=== PATIENT | female | born 1960 | race Caucasian/White ===

== ENCOUNTER 2021-12-20 14:30 | Outpatient (RCR) | payer OTHER, SELFPAY ==
[2021-11-16 11:07] VITALS: BMI 33.6
[2021-11-16 11:17] VITALS: BMI 33.6
== END 2022-02-07 07:20 | disposition home or self-care (01) ==
LOC: ANHDMC 14:30
PROVIDERS: PCP Nurse Practitioner Family; Visit Provider Nurse Practitioner Family
DX: E11.9 Type 2 diabetes mellitus without complications (principal); Z71.3 Dietary counseling and surveillance; Z71.89 Other specified counseling
CPT/HCPCS: 97802; 99199; G0108; G0109

== ENCOUNTER 2022-10-06 17:52 | Emergency (ER) | payer OTHER, SELFPAY ==
[2022-10-06 17:52] VITALS: BP 120/69; PULSE 99; RESP 16; TEMP 36.4; O2SAT 100
[2022-10-06 19:16] VITALS: BP 105/73; PULSE 90; RESP 16; O2SAT 99
[2022-10-06 19:17] VITALS: BP 106/55; PULSE 85
[2022-10-06 19:18] VITALS: BP 116/67; PULSE 93
--- NOTE | 2022-10-06 19:51 | ED.GENADULT ---
HPI - General Adult General Chief complaint: Dizziness Stated complaint: dizziness Time Seen by Provider: 10/06/22 19:10 History of Present Illness HPI narrative: this is a 62-year-old female presenting ED with a chief complaint of dizziness. At 1:30 p.m. she took a 10 mg THC edible. She took the edible because while she was at the store the person working the manager front office said she looked tired and could use of boost. He then sold her a THC edible. Shortly after she started experience a sensation of dizziness, headache, strange sensations throughout her body and racing thoughts. She also had some nausea but no vomiting. She has never used THC in the past. She denies dysphagia, dysarthria, dystaxia or numbness tingling or weakness to any extremity. Related Data Allergies Allergy/AdvReac Type Severity Reaction Status Date / Time adhesive Allergy Mild Rash Verified 10/06/22 19:15 [facility] Past Medical History Medical History (Updated 10/06/22 @ 19:58 by Vin Valdes MD) CKD (chronic kidney disease) Diabetes High cholesterol Social History Social History (Updated 10/06/22 @ 19:54 by Vin Valdes MD) Social History: patient denies drugs alcohol or tobacco Spiritual care concerns: No Exam Narrative: APPEARANCE: No apparent distress. Head: atraumatic. EYES: EOMI, NOSE: Atraumatic NECK: Trachea midline RESPIRATORY: No increased rate of breathing CARDIOVASCULAR: RRR, ABDOMINAL: Non-distended MUSCULOSKELETAl: No obvious deformities NEURO: Alert. Cranial nerves 2-12 grossly intact. Sensation light touch, motor function cerebellar function intact for 4 extremities. Gait exam was normal. No nystagmus at rest. Head impulse indeterminate, test of skew negative SKIN:: Warm, dry. Normal color PSYCHIATRIC: Normal affect Course Vital Signs Vital signs: Vital Signs Temperature 97.5 F L 10/06/22 17:52 Pulse Rate 99 10/06/22 17:52 Respiratory Rate 16 10/06/22 17:52 Blood Pressure 120/69 10/06/22 17:52 Pulse Oximetry 100 10/06/22 17:52 Temperature 97.5 F L 10/06/22 17:52 Pulse Rate 93 10/06/22 19:18 Respiratory Rate 16 10/06/22 19:16 Blood Pressure 116/67 01/07/23 19:18 Pulse Oximetry 99 10/06/22 19:16 Medical Decision Making MDM Narrative Medical decision making narrative: DDX includes but is not limited to: THC toxicity, peripheral vertigo, posterior stroke Co-morbidities complicating care: diabetes, CKD, high cholesterol External Chart Review: none Hx from independent Sources: Discussion of Management: care discussed with and patient Independent interpretation of studies: None Dx tests considered but not ordered: CTA and MRI were considered however the patient has a normal neurologic exam and no localizing findings I believe a stroke is likely. Shared decision making: Performed with patient her . Patient would like to be discharged home. She will be given Valium. Procedures: None Interventions: None This 62-year-old female presenting ED with a chief complaint of dizziness. The patient took a large dose of THC and is a night he. All of her symptoms are likely due to the THC. She has a normal neurologic exam and will posterior stroke was considered I think is highly unlikely. Patient will be given Valium to help her relax. She will be discharged home with instructions to sleep it off. If she still has symptoms in the morning she can return emergency department for re-evaluation. Vital Signs Vital Signs: Vital Signs Temperature 97.5 F L 10/06/22 17:52 Pulse Rate 99 10/06/22 17:52 Respiratory Rate 16 10/06/22 17:52 Blood Pressure 120/69 10/06/22 17:52 Pulse Oximetry 100 10/06/22 17:52 Temperature 97.5 F L 10/06/22 17:52 Pulse Rate 93 10/06/22 19:18 Respiratory Rate 16 10/06/22 19:16 Blood Pressure 116/67 10/06/22 19:18 Pulse Oximetry 99 10/06/22 19:16 Discharge Plan Discharge Clini
[2022-10-06] MEDS: diazePAM (*CRX) 5 MG TABLET PO (20:06)
[2022-10-06 20:07] VITALS: BP 109/67; PULSE 84; RESP 17; O2SAT 98
== END 2022-10-06 20:18 | disposition home or self-care (01) ==
PROVIDERS: Emergency Provider Emergency Medicine; PCP Nurse Practitioner Family
DX: T40.711A Poisoning by cannabis, accidental (unintentional), initial encounter (principal); R42 Dizziness and giddiness; E11.22 Type 2 diabetes mellitus with diabetic chronic kidney disease; N18.9 Chronic kidney disease, unspecified; E78.00 Pure hypercholesterolemia, unspecified
CPT/HCPCS: 99283; A9270

== ENCOUNTER 2023-05-09 00:30 | Day surgery (SDC) | payer OTHER, SELFPAY ==
[2023-04-29 13:01] VITALS: BMI 32.3
[2023-05-09 07:10] VITALS: BP 108/52; PULSE 75; RESP 16; TEMP 36; O2SAT 97; BMI 34.4
[2023-05-09] MEDS: LACTATED RINGERS 1,000 ML 150 ML IV CONT (07:19)
[2023-05-09 07:22] LABS: Glucose Point of Care 125 mg/dl (65-105)
--- NOTE | 2023-05-09 08:04 | P.PNAN_ITS ---
Anes - Initial Pre Proc Eval Procedure: Operation Date: 05/09/23 08:30 Proposed Procedures p Colonoscopy - Rene Berg MD Date/Time: 05/09/23 08:04 Surgeon: Rene Berg MD Pre Op Diagnosis: hx colon polyps Patient Data Age: 63 Gender: F Height: 1.68 m Weight: 97 kg Last Vital Signs Temp 96.8 F L 05/09/23 07:10 Pulse 75 05/09/23 07:10 Resp 16 05/09/23 07:10 BP 108/52 L 05/09/23 07:10 Pulse Ox 97 05/09/23 07:10 O2 Del Method Room Air 05/09/23 07:10 Allergies Allergy/AdvReac Type Severity Reaction Status Date / Time adhesive Allergy Mild Rash Verified 05/09/23 07:09 Home Medications Medication Instructions Recorded Confirmed Type bupropion HCl 300 mg 24 hr tablet, 300 mg PO DAILY 04/29/23 05/09/23 History extended release ergocalciferol (vitamin D2) 1,250 1,250 mcg PO WEEKLY 04/29/23 05/09/23 History mcg (50,000 unit) capsule linaclotide 290 mcg capsule 290 mcg PO DAILY 04/29/23 05/09/23 History (Linzess) semaglutide 2 mg/dose (8 mg/3 mL) 2 mg subcut WEEKLY 04/29/23 05/09/23 History subcutaneous pen injector (Ozempic) simvastatin 40 mg tablet 40 mg PO DAILY 04/29/23 05/09/23 History Laboratory Tests 05/09/23 07:14 POC Capillary Glucose 125 H mg/dl (65-105) Patient hx anesthesia problems: none Family hx anesthesia problems: none Results Review: All pre-operative results and documents have been reviewed as part of the pre- operative evaluation. [facility] Past Medical History Medical History (Updated 10/07/22 @ 00:08 by Liz Silver) CKD (chronic kidney disease) Diabetes High cholesterol Social History Social History (Updated 10/06/22 @ 19:54 by Vin Valdes MD) Social History: patient denies drugs alcohol or tobacco Smoking status: Never smoker Living arrangements: with family Spiritual care concerns: No Anes - Eval Final PreProcedure Day of Procedure 08/10/23 08:04 Patient weight: normal Heart: regular rate and rhythm Lungs: clear to auscultation Airway: Mallampati scale class II Neurological: alert and oriented Last oral intake: >/= 8 hours ASA classification: III Emergent: no Anesthetic plan: proceed Anesthesia type and monitoring: general GIVS and standard monitoring Results Review: All pre-operative results and documents have been reviewed as part of the pre- operative evaluation. Informed Consent: The patient's anesthetic plan and its attendant risks and benefits were discussed with the patient/family/POA. Questions were solicited and answers provided to the satisfaction of the patient/family/POA.
--- NOTE | 2023-05-09 08:29 | PM.HPGS ---
History of Present Illness History of Present Illness Consent: Risks, benefits, and alternatives have been discussed and questions answered. Patient agrees to proceed with procedure. Chief complaint: hx colon polyps Narrative: Marjorie Griffith is a 63 year old female with polyps in the past, last colonscopy 3 years ago did not have any Review of Systems Constitutional: Constitutional: Denies headache(s) and Denies weakness Eyes: Eyes: Denies blurry vision ENT: Reports Normal hearing present, Denies headache(s) and Denies neck pain Cardiovascular: Cardiovascular: Denies chest pain and Denies dyspnea Respiratory: Respiratory: Denies dyspnea Gastrointestinal: Gastrointestinal: Reports no additional gastrointestinal complaints Genitourinary: Genitourinary: Denies dysuria Musculoskeletal: Musculoskeletal: Denies neck pain Integumentary/Breasts: Skin/Breast: Denies dry skin Neurologic: Reports Normal hearing present, Denies headache(s) and Denies weakness Psychiatric: Psychiatric: Denies anxiety Endocrine: Endocrine: Denies change in body appearance Hematologic/Lymphatic: Hematologic/Lymphatic: Denies easy bleeding Allergic/Immunologic: Allergic/Immunologic: Denies urticaria [facility] Past Medical History Medical History (Updated 05/09/23 @ 08:30 by Rene Berg MD) CKD (chronic kidney disease) Colon polyp Diabetes High cholesterol Social History Social History (Updated 10/06/22 @ 19:54 by Vin Valdes MD) Social History: patient denies drugs alcohol or tobacco Smoking status: Never smoker Living arrangements: with family Spiritual care concerns: No Meds Home Medications and Allergies Home Medications Medication Instructions Recorded Confirmed Type bupropion HCl 300 mg 24 hr tablet, 300 mg PO DAILY 04/29/23 05/09/23 History extended release ergocalciferol (vitamin D2) 1,250 1,250 mcg PO WEEKLY 04/29/23 05/09/23 History mcg (50,000 unit) capsule linaclotide 290 mcg capsule 290 mcg PO DAILY 04/29/23 05/09/23 History (Linzess) semaglutide 2 mg/dose (8 mg/3 mL) 2 mg subcut WEEKLY 04/29/23 05/09/23 History subcutaneous pen injector (Ozempic) simvastatin 40 mg tablet 40 mg PO DAILY 04/29/23 05/09/23 History Allergies Allergy/AdvReac Type Severity Reaction Status Date / Time adhesive Allergy Mild Rash Verified 05/09/23 07:09 Vital Signs Vital Signs - 24 hr 05/09/23 07:10 Temperature 96.8 F L Pulse Rate 75 Respiratory Rate 16 Blood Pressure 108/52 L Pulse Oximetry 97 Oxygen Delivery Room Air Exam Const: General: comfortable and no acute distress HENMT: Face/Nose/Sinus: Normal nares present Eyes: General: appearance normal, both eyes and all related structures Neck: Neck: no JVD Resp: Auscultation: clear to auscultation bilaterally Cardio: Rate: regular rate Rhythm: regular rhythm GI: Inspection: non-distended GI Palp: Yes Soft to palpation Skin: General skin exam: normal color Neuro: General: gait normal Speech: normal speech Extrem: General: normal to inspection Psych: Mental Status: mental status grossly normal Assessment and Plan Assessment and plan (1) Colon polyp: Code(s): K63.5 - Polyp of colon Status: Acute Assessment and Plan: colonoscopy
[2023-05-09 08:49] VITALS: BP 111/79; PULSE 80; RESP 17; O2SAT 96
[2023-05-09 08:59] VITALS: BP 108/79; PULSE 73; RESP 22; O2SAT 96
[2023-05-09 09:09] VITALS: BP 119/70; PULSE 70; RESP 23; O2SAT 96
== END 2023-05-09 09:15 | disposition home or self-care (01) ==
PROVIDERS: PCP Nurse Practitioner Family; Visit Provider Internal Medicine Gastroenterology
PROC: 0DJD8ZZ Inspection of Lower Intestinal Tract, Via Natural or Artificial Opening Endoscopic (ICD-10-PCS; CPT 45378; principal; 2023-05-09 08:30)
DX: Z12.11 Encounter for screening for malignant neoplasm of colon (principal); Z86.010 Personal history of colon polyps; E11.22 Type 2 diabetes mellitus with diabetic chronic kidney disease; N18.9 Chronic kidney disease, unspecified; E78.00 Pure hypercholesterolemia, unspecified
CPT/HCPCS: 45378; 82948; J2704; J7120

== ENCOUNTER 2023-06-22 11:03 | Emergency (ER) | payer OTHER, SELFPAY ==
[2023-06-22 11:13] VITALS: BP 114/70; PULSE 84; RESP 16; TEMP 36.2; O2SAT 100
--- NOTE | 2023-06-22 11:40 | ED.URI ---
HPI - URI/Sore Throat General Chief Complaint: Upper Respiratory Infection Stated Complaint: cough Time Seen by Provider: 06/22/23 11:30 Source: patient, RN notes reviewed and old records reviewed Mode of arrival: ambulatory Limitations: no limitations History of Present Illness HPI Narrative: 63-year-old female who presents to [facility] complaints of cough which has been persistent for the past 4-6 weeks and is worse at night. Patient reports that she has had 2 prescriptions of Tessalon Perles and has taken a bottle of Mucinex cough medication without resolution of cough. Patient has some sinus congestion denies facial pressure, reports cough is productive at night.Patient is able to speak in full sentences, respirations are nonlabored SAO2 100% on room air. MD elicited complaint: cough, rhinorrhea and nasal congestion Onset (ago): week(s) (4-6 weeks) Description of mucous: clear Able to tolerate fluids by mouth: Yes Treatments prior to arrival: cold medicine and other (cough medication) Related Data Home Medications Medication Instructions Recorded Confirmed bupropion HCl 300 mg 24 hr tablet, 300 mg PO DAILY 04/29/23 05/09/23 extended release ergocalciferol (vitamin D2) 1,250 1,250 mcg PO WEEKLY 04/29/23 05/09/23 mcg (50,000 unit) capsule linaclotide 290 mcg capsule 290 mcg PO DAILY 04/29/23 05/09/23 (Linzess) simvastatin 40 mg tablet 40 mg PO DAILY 04/29/23 05/09/23 Fish Oil 06/22/23 tirzepatide 10 mg/0.5 mL mg subcut 06/22/23 subcutaneous pen injector (Louis) Allergies Allergy/AdvReac Type Severity Reaction Status Date / Time adhesive Allergy Mild Rash Verified 06/22/23 11:04 Review of Systems Review of Systems: CONSTITUTIONAL: Denies malaise, chills, sweats, or fever. EYES: Denies visual changes, redness, or discharge. ENT: Reports rhinorrhea, congestion, sinus pain, no otalgia and no sore throat. CARDIOVASCULAR: Denies chest pain, palpitations, or edema. RESPIRATORY: Reports cough.? Denies dyspnea. GASTROINTESTINAL: Denies abdominal pain, nausea, vomiting, diarrhea SKIN: Denies rash or itching. MUSCULOSKELETAL: Denies myalgia. NEUROLOGIC: Denies headache. All systems reviewed & are unremarkable except as noted in HPI and below PMFSH Past Medical History Medical History (Updated 06/23/23 @ 16:38 by Carlita Chery NP) CKD (chronic kidney disease) Colon polyp DDD (degenerative disc disease) Diabetes Fusion of spine, cervical region High cholesterol History of IBS Surgical History Surgical History (Updated 06/23/23 @ 16:38 by Carlita Chery NP) H/O: hysterectomy Hx of cholecystectomy Previous section x2 Social History Social History Social History: patient denies drugs alcohol or tobacco Smoking status: Never smoker Living arrangements: with family Spiritual care concerns: No Comments At time of signature, agree with nursing past medical, surgical, social and family history. There is no relevant family history pertinent to the presenting complaint Exam Narrative: GENERAL: Well-appearing, well-nourished, and in no acute distress. HEAD: Normocephalic EYES: PERRLA, conjunctivae clear ENT: Nares clear, turbinates edematous and erythematous, clear discharge. Mucous membranes moist. TM pearly goodman with dull light reflex bilaterally; no tragal tenderness. Oropharynx erythematous without lesions. Tonsils not enlarged and without exudate, no drooling, no hoarseness, no trismus, uvula midline.post nasal drainage noted NECK: Supple. No lymphadenopathy CHEST: Clear to auscultation, breath sounds equal. No wheezing, rhonchi, rales, or stridor. No respiratory distress, speaks in full sentences. frequent cough , SAO2 100% on room air HEART: Regular rate and rhythm. No murmur heard. SKIN: Warm, dry, no rash. NEURO: Alert and oriented x3. PSYCH: Normal mood and affect
== END 2023-06-22 12:08 | disposition home or self-care (01) ==
PROVIDERS: Emergency Provider Registered Nurse; PCP Nurse Practitioner Family
DX: J06.9 Acute upper respiratory infection, unspecified (principal); E11.22 Type 2 diabetes mellitus with diabetic chronic kidney disease; N18.9 Chronic kidney disease, unspecified; E78.00 Pure hypercholesterolemia, unspecified
CPT/HCPCS: 99213; G0463

== ENCOUNTER 2024-09-09 08:44 | Outpatient (RCR) | payer OTHER, SELFPAY ==
--- NOTE | 2024-09-09 09:50 | PTOPEVAL1 ---
Assessment and note entered by Eliot Walker, PT, DPT Evaluation Information Assessment Status Evaluation Subjective Information Pt states about a month ago she had a back ache, a couple of weeks ago she went to the doctor and got a muscle relaxer and a steroid and it made the pain worse. She states the pain in now in her low back, shoots down her both legs R>L, and at times will go up to her neck. 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 Reported Pain Level Pain Score 6,4: Self Report Assessment PT Clinical Summary Pt presents to therapy today for her initial evaluation with a diagnosis of a lumbar strain. Today she demonstrates asymmetric pelvic alignment in supine that is corrected with muscle energy techniques. She ambulates with a shortened stride length with a lack of heel strike marissa. She demonstrates an increased anterior pelvic tilt and decreased core strength. She was issued an HEP this date and plans to work on this IND d/t her high copay. Will leave her chart open in the event that she has questions and needs a follow up visit. Plan of Care Interventions Electrical Stimulation,Gait Training,Hot Pack/Cold Pack,Manual Therapy,Paraffin Bath,Patient/ Caregiver Education,Therapeutic Activities, Therapeutic Exercise PT Services Indicated Yes Treatment Frequency and 1x/wk for 6 visits Duration These treatments will address the objective and functional deficits as defined above. The patient will be advanced safely and appropriately in order for the patient to progress towards his/her prior level of function. Additional exercises will be introduced and as well as a comprehensive home exercise program upon discharge, if needed, ?to ensure carryover of functional gains achieved in the clinic. This treatment plan has been reviewed and agreement upon by the patient.
--- NOTE | 2024-11-25 10:09 | PTOPDC ---
Assessment and note entered by Eliot Walker, PT, DPT Evaluation Information Assessment Status Discharge - Pt Not Present Subjective Information Pt was evaluated on 09/09/24, at that time she elected to work on her HEP IND and would follow up if she had any questions. Attempted to follow up with pt but have not heard back. Will discharged at this time d/t not hearing from pt. Assessment PT Clinical Summary Evaluated on 09/09/24 and did not complete any follow up appointments.
== END 2024-11-25 11:58 | disposition home or self-care (01) ==
LOC: ANHGOSHPT 08:44
PROVIDERS: PCP Nurse Practitioner Family; Visit Provider Nurse Practitioner Family
DX: S39.012A Strain of muscle, fascia and tendon of lower back, initial encounter (principal)
CPT/HCPCS: 97110; 97161